=== PATIENT | male | born 1980 | race Caucasian/White ===

== ENCOUNTER 2020-06-22 14:08 | Emergency (ER) | payer OTHER ==
[2020-06-22 17:11] LABS: HEMOGLOBIN 14.2 gm/dl (14.0-17.5); RED BLOOD COUNT 4.61 M/UL (4.20-5.50); WHITE BLOOD COUNT 9.5 K/UL (4.5-11.0)
[2020-06-22 17:14] LABS: BUN/CREATININE RATIO 17 (0-10)
[2020-06-22] MEDS ORDERED: FLAGYL500 MG PO (19:21)
[2020-06-22] MEDS ORDERED: CIPRO500 MG PO (19:21)
== END 2020-06-22 19:35 | disposition home or self-care (01) ==
LOC: ER1 14:08
PROVIDERS: Emergency Medicine
DX: N39.0 Urinary tract infection, site not specified (principal); R19.7 Diarrhea, unspecified; R91.1 Solitary pulmonary nodule; F17.200 Nicotine dependence, unspecified, uncomplicated; Z88.0 Allergy status to penicillin
CPT/HCPCS: 36415; 80053; 81001; 83690; 85025; 87086; 96374; 96375; 99284; J2270; J2405; Q9967